=== PATIENT | male | born 1975 | race Caucasian/White ===

== ENCOUNTER 2017-09-12 16:50 | Emergency (ER) | payer OTHER ==
[2017-09-12 16:56] VITALS: BP 140/96; PULSE 87; TEMP 98.6; BMI 26.7
[2017-09-12] MEDS ORDERED: DIPHTH,PERTUSS(ACELL),TET 0.5 ML DISP.SYRIN IM ONE (17:34)
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
[2017-09-12] MEDS ORDERED: AMOX TR/POT CLAV 875MG/125MG TABLETS (FP) PO ONE (17:40)
[2017-09-12] MEDS ORDERED: AMOX TR/POT CLAV 875MG/125MG TABLETS (FP) ONE (17:50)
[2017-09-12 18:35] LABS: BASO % 0.9 % (0-2.0); EOS % 1.5 % (0-4.5); HEMATOCRIT 46.8 % (35.4-49); HEMOGLOBIN 15.7 GM/dl (11.7-16.9); LYMPH % 33.1 % (8-40); MCH 28.9 pg (25.7-33.7); MCHC 33.5 g/dl (32.0-35.9); MEAN CELL VOLUME 86.3 fl (80-96); MEAN PLT VOLUME 8.2 fl (7.5-11.1); MONO % 5.9 % (3.8-10.2); NEUT % 58.6 % (42.8-82.8); PLATELET COUNT 278 K/MM3 (134-434); RBC 5.43 M/mm3 (4.00-5.60); RDW 12.2 % (11.9-15.9); WHITE BLOOD COUNT 7.8 K/mm3 (4.0-10.8)
[2017-09-12 18:45] LABS: ALBUMIN 4.7 g/dl (3.5-5.0); ALK PHOS 69 U/L (32-92); ANION GAP 7 (8-16); BILIRUBIN,TOTAL 0.7 mg/dl (0.2-1.0); BLOOD UREA NITROGEN 14 mg/dl (7-18); CALCIUM 9.5 mg/dl (8.4-10.2); CHLORIDE 101 mmol/L (98-107); CO2 29 mmol/L (22-28); CREATININE 0.7 mg/dl (0.6-1.3); GAMMA GLUTAMYL TRANSPEPTIDASE 31 U/L (3-64); GLUCOSE,RANDOM 85 mg/dl (74-106); POTASSIUM 4.4 mmol/L (3.5-5.1); SGOT/AST 24 U/L (10-42); SGPT/ALT 30 U/L (10-40); SODIUM 137 mmol/L (136-145)
[2017-09-14 06:42] LABS: HBsAG SCREEN Negative (Negative); HEPATITIS B CORE ANTIBODY Negative (Negative)
== END 2017-09-12 18:20 | disposition home or self-care (01) ==
LOC: FER 16:50
PROC: 3E0234Z Introduction of Serum, Toxoid and Vaccine into Muscle, Percutaneous Approach (ICD-10-PCS; principal; 2017-09-12)
DX: S41.151A Open bite of right upper arm, initial encounter (principal); Y04.1XXA Assault by human bite, initial encounter; Y93.89 Activity, other specified; Y92.89 Other specified places as the place of occurrence of the external cause; Y99.0 Civilian activity done for income or pay
CPT/HCPCS: 36415; 80053; 82977; 85025; 86704; 87340; 87389; 90715; 99283-25

== ENCOUNTER 2018-09-02 08:12 | Emergency (ER) | payer OTHER | END 2018-09-02 12:32 | disposition home or self-care (01) | LOC: FER 08:12 ==

== ENCOUNTER 2019-12-13 08:42 | Emergency (ER) | payer OTHER ==
[2019-12-13 08:49] VITALS: BP 131/79; PULSE 79; TEMP 99.2; BMI 27.1
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
--- OUTSIDE RECORDS SUMMARY | 2019-12-13 09:37 | XMS ---
:1975 Author Organization [facility] Support Name Relationship Address Phone ELÍAS GARCIA Unavailable [address] [place] [address] FLOR ALVAREZ [address] [place] [address] Re-disclosure Warning The records that you are about to access may contain information from federally- assisted alcohol or drug abuse programs. If such information is present, then the following federally mandated warning applies: This information has been disclosed to you from records protected by federal confidentiality rules (42 CFR part 2). The federal rules prohibit you from making any further disclosure of this information unless further disclosure is expressly permitted by the written consent of the person to whom it pertains or as otherwise permitted by 42 CFR part 2. A general authorization for the release of medical or other information is NOT sufficient for this purpose. The Federal rules restrict any use of the information to criminally investigate or prosecute any alcohol or drug abuse patient.The records that you are about to access may contain highly sensitive health information, the redisclosure of which is protected by Article 27-F of the [facility] Public Health law. If you continue you may haveaccess to information: Regarding HIV / AIDS; Provided by facilities licensed or operated by the [facility] Office of Mental Health; or Provided by the [facility] Office for People With Developmental Disabilities. If such information is present, then the following [facility] mandated warning applies: This information has been disclosed to you from confidential records which are protected by state law. State law prohibits you from making any further disclosure of this information without the specific written consent of the person to whom it pertains, or as otherwise permitted by law. Any unauthorized further disclosure in violation of state law may result in a fine or prison sentence or both. A general authorization for the release of medical or other information is NOT sufficient authorization for further disclosure. Insurance Providers Payer name Policy type Policy ID Covered Covered democrat's Policy P helen / Coverage democrat ID relationship to Diaz Inf ormation type diaz LOCAL [id number] [facility] [id number] HEALTH PLANS Results ID Date Data Source [id number] 09/10/2019 12:00:00 AM EDT [facility] Name Value Range Interpretation Code Description Data Erin rce(s) Supporting Document(s ) COV2 [facility] This lab was ordered by [facility] and reported by [facility]. ID Date Data Source [id number] 06/11/2019 12:00:00 AM EDT [facility] Name Value Range Interpretation Code Description Data Erin rce(s) Supporting Document(s ) 2019-nCoV [facility] RNA XXX TEJAL+probe- Imp This lab was ordered by [facility] a nd reported by [employer] Procedure
== END 2019-12-13 09:30 | disposition home or self-care (01) ==
LOC: FER 08:42
DX: S06.0X0A Concussion without loss of consciousness, initial encounter (principal)
CPT/HCPCS: 99283-25

== ENCOUNTER 2021-07-09 23:07 | Emergency (ER) | payer OTHER ==
[2021-07-09] MEDS ORDERED: HALOPERIDOL LACTATE 5 MG/ML ONE (23:20)
[2021-07-09 23:25] VITALS: BP 154/81; PULSE 86; TEMP 98.3; BMI 26.9
[2021-07-09 23:40] LABS: HEMATOCRIT 41.6 % (35.4-49); HEMOGLOBIN 14.4 G/dL (11.7-16.9); MCHC 34.7 g/dl (32.0-35.9); MEAN CELL VOLUME 86.4 fl (80-96); MEAN PLT VOLUME 7.9 fl (7.5-11.1); PLATELET COUNT 242.6 10^3/uL (134-434); RBC 4.81 10^6/uL (4.00-5.60); RDW 14.6 % (11.9-15.9); WHITE BLOOD COUNT 8.3 10^3/uL (4.0-10.8)
[2021-07-09 23:57] LABS: PLATELET ESTIMATE ADEQUATE
[2021-07-09 23:58] LABS: ANISOCYTOSIS 1+
[2021-07-09 23:58] LABS: BILIRUBIN,TOTAL 0.6 mg/dl (0.2-1); CALCIUM 9.5 mg/dl (8.5-10); CREATININE 0.8 mg/dl (0.55-1.3); TOT PROT 6.8 g/dl (6.4-8.2)
[2021-07-10] MEDS ORDERED: ACETAMINOPHEN INJECTION 100 ML IVPB ONE (00:56)
[2021-07-10] MEDS ORDERED: ACETAMINOPHEN 1000 MG/100 ML BAG IVPB ONE (01:00)
== END 2021-07-10 04:09 | disposition home or self-care (01) ==
LOC: FER 23:07
PROC: 3E033GC Introduction of Other Therapeutic Substance into Peripheral Vein, Percutaneous Approach (ICD-10-PCS; principal; 2021-07-09)
DX: R07.89 Other chest pain (principal)
CPT/HCPCS: 36415; 71046-TC-FY; 80053; 84484; 85025; 93005; 99285-25